=== PATIENT | female | born 1965 | race Caucasian/White ===

== ENCOUNTER 2019-04-24 15:42 | Emergency (ER) | payer BC, OTHER ==
--- OUTSIDE RECORDS SUMMARY | 2019-04-24 16:11 | XMS REPORT | Continuity of Care Document ---
:1965 External Reference #:[id number] Author Name Jim Valdez MD Address [address] [place] [id number] Care Team Providers Name Role Phone Kelly Burnham MD - Care Team Information Freight Engineer [phone] Endocrinology, Diabetes & Metabolism Problems Active Problems Provider Date Type II diabetes mellitus uncontrolled Jeanie Garcia MD Onset: 02/25/2011 Neurological disorder with type 2 diabetes Jeanie Garcia MD Onset: 2013 mellitus Benign essential hypertension Jeanie Garcia MD Onset: 02/25/2011 Edema Jeanie Garcia MD Onset: 09/11/2013 Vitamin D deficiency Jeanie Garcia MD Onset: 03/07/2013 Obesity Jeanie Garcia MD Onset: 04/07/2011 Peptic reflux disease Jeanie Garcia MD Onset: 02/25/2011 Pure hypercholesterolemia Jeanie Garcia MD Onset: 02/25/2011 Calcific tendinitis of shoulder Fabi Conroy PA Onset: 11/12/2015 Strain of rotator cuff capsule Jeanie Garcia MD Onset: 10/12/2016 Gallstone Mario Stuart MD,FACS Onset: 03/08/2018 Heartburn Mario Stuart MD,FACS Onset: 03/08/2018 Screening for malignant neoplasm of colon Mario Stuart MD,FACS Onset: Social History Type Date Description Comments Sex Unknown Tobacco Use Start: Unknown End: Unknown Former Cigarette Smoker Cigarette Use Family Does Not Smoke ETOH Use Rarely consumes alcohol 1 dr/mo Tobacco Use Start: Unknown End: Unknown Patient is a former smoker Recreational Drug Use Denies Drug Use Tobacco Use Start: Unknown 1987 Smoking Status Reviewed: 03/20/19 Quit 1987 Allergies, Adverse Reactions, Alerts Active Allergies Reaction Severity Comments Date NKDA 06/10/2015 Seasonal 02/13/2016 Medications Active Medications SIG Qnty Indications Ordering Date Provider Lansoprazole Take 1 Capsule By 90caps E11.42 Jeanie Garcia, 03/01/2019 30mg Mouth Every Day. MD Gopi DE JESUS Maximum Daily Dose Is 1. Maximum Daily Dose Is 1. Maximum Daily Dose Is 1 Benzonatate take 1 capsule by 30caps Aleksandra Donaldson, 09/26/2018 100mg mouth every 8 [employer] Capsules hours for coughing as needed Lisinopril-Hydrochloro 2 tabs by mouth 180tabs I10 Yasmine Ramirez 05/11/2018 thiazide every day Rupa, IVAN, 20-12.5mg [employer] Tablets Ventolin HFA 1-2 puffs every 4 8gm J20.9 Darline Sibley, 08/19/2017 108(90Base) hours as needed PNP-BC, [employer], mcg/Act Aerosol Ibclc Aerochamber Plus as directed 1units J20.9 Darline Sibley, 08/19/2017 Misc PNP-BC, [employer], Ibclc Cyclobenzaprine HCL 1 by mouth three 90tabs Jim Valdez MD 10/12/2016 10mg times a day as Tablets needed muscle spasms Lasix 1/2 - 1 by mouth 90tabs R60.9 Jeanie Garcia, 02/13/2016 20mg Tablets every day as MD needed Farxiga TK 1 T PO qd Unknown 10mg Tablets Tylenol 2 tabs as needed Unknown 325mg Tablets for pain or discomfort every 4 hours as needed Benadryl 1 tabl by mouth Unknown 25mg Capsules every night at bedtime Multi Vitamin 1 by mouth every Unknown Tablets day Vitamin D 1 by mouth every Unknown day Simvastatin 1 by mouth every Jeanie Garcia, 40mg Tablets day Novolog Flexpen Avg 10 Units ac Kelly Burnham tid A.MD 100Unit/ML Solution Pen-Inject Lantus Solostar 55 Units Q PM Kelly Burnham AMD Blas 100Unit/ML Solution Pen-Inject Victoza 1 .8 ML qd Kelly Burnham 18mg/3ML Solution MD Jenna Pen-Inject History Medications Shingrix intramuscular 1units Z23 Jim Valdez, 09/19/2018 - 50mcg/0.5ML injection x1 03/20/2019 Suspension Rec Medications Administered in Office Medication SIG Qnty Indications Ordering Provider Date Methylprednisolone acetate Fabi Conroy PA 11/12/2015 (Depomedrol) 80mg injection Injection Immunizations CPT Code Status Date Vaccine Lot # [id number] Given 09/19/2018 Pneumovax Injection [id number] Given 04/07/2011 Influenza Vaccine (Fluzone) Age 3 And Older 76545 Given 04/07/2011 flu vaccination 84146 Given 05/25/2006 Influenza Virus Vaccine Intranasal 98838 Given 11/06/2005 Tetnus Injection 41375 Given 05/07/1997 Tetnus Injection Vital Signs Date Vital Result Comment 03/20/2019 9:15am BP Systolic 136 mmHg BP Diastolic 77 mmHg Body Temperature 98.6 F Heart Rate 93 /min Respiratory Rate 18 /min Height 63 inches 5'3" Weight 265.25 lb BMI (Body Mass Index) 47.0 kg/m2 BSA (Body Surface Area) 2.18 m2 [place] body weight in kilograms 52 kg O2 % BldC Oximetry 96 % Ra 11/15/2018 2:10pm BP Systolic 127 mmHg BP Diastolic 77 mmHg Heart Rate 96 /min Height 63 inches 5'3" Weight 264.00 lb BMI (Body Mass Index) 46.8 kg/m2 BSA (Body Surface Area) 2.18 m2 [place] body weight in kilograms 52 kg O2 % BldC Oximetry 98 % Results Test Date Facility Test Result H/L Range Note CBC 09/19/[address] [facility] [address] White Blood 9.7 K/uL Normal 3.1-10.7 1 W/Automated [address] [place] [address] [phone] Red Blood Count 4.80 M/uL Normal 3.90-5.40 Hemoglobin 13.5 gm/dL Normal 11.6-15.8 Hematocrit 41.8 % Normal 36.0-46.1 Mean Cell Volume 87.1 fl Normal 80.9-99.0 Mean Corpuscular HGB 28.1 pg Normal 25.9-32.7 Mean Corpuscular HGB Conc 32.3 g/dL Normal 30.8-34.3 Platelet Count 312 K/uL Normal 155-360 Red Cell Distri Width SD 45.9 fl Normal 36-47 Red Cell Distri Width %CV 14.9 % High 11.7-14.4 Mean Platelet Volume 10.6 fL Normal 8.9-12.4 Neut% 65.0 % Normal 40.4-72.8 Lymph % 20.9 % Normal 20.0-42.0 [place] % 10.1 % Normal 4.3-13.2 Eo% 3.7 % Normal 0.0-6.6 Bas% 0.3 % Normal 0.0-1.1 Neut# 6.33 K/uL Normal 1.8-7.0 Lymph # 2.03 K/uL Normal 1.0-4.0 [place] # 0.98 K/uL High 0.3-0.9 Eos # 0.36 K/uL Normal 0.0-0.5 Baso # 0.03 K/uL Normal 0.0-0.1 Comprehensive Metabolic 09/19/[address] [facility] [address] Glucose 116 mg/dL High 74-[address] [place] [address] [phone] BUN 21 mg/dL High 7-18 Creatinine 0.8 mg/dL Normal 0.6-1.3 Glom Filtration Rate, Estimate >60 mL/min >60 If >60 mL/min >60 2 BUN/Creat 26.2 ratio Sodium 139 mmol/L Normal 136-145 Potassium 3.8 mmol/L Normal 3.5-5.1 Chloride 106 mmol/L Normal 98-107 Carbon Dioxide 26 mmol/L Normal 21-32 Anion Gap 7 mEq/L Low 8-16 Calcium 8.3 mg/dL Low 8.5-10.1 Total Protein 7.0 g/dL Normal 6.4-8.2 Albumin 3.4 g/dL Normal 3.4-5.0 Globulin 3.6 g/dL Normal 1.9-4.3 Alb/Glob 0.9 ratio Bilirubin,Total 0.2 mg/dL Normal 0.2-1.0 Sgot/Ast 14 U/L Low 15-37 3 SGPT/Alt 24 U/L Normal 12-78 Alkaline Phosphatase 93 U/L Normal 45-117 LDL Cholesterol Profile 09/19/[address] Cholesterol 173 mg/dL <200 4 [address] [place] [address] [phone] Triglycerides 204 mg/dL High <150 5 HDL Cholesterol 42 mg/dL >40 6 LDL-Cholesterol 90 mg/dL < 100 7 Glycohemoglobin 09/19/[address] Glycohemoglobin 7.6 % High 4.2-6.3 [address] [place] [address] (A1c) [place], [place] [id number] [phone] eAG 171 mg/dL T7/TSH 09/19/[address] T3 Uptake 35 % Normal 31-[address] [place] [address] [phone] Thyroxine (T4) 8.7 g/dL Normal 4.7-13.3 T7 3.05 g/dL Low 5.0-12.0 Thyroid Stim Hormone 0.76 uIU/mL Normal 0.30-4.20 Laboratory test 09/19/[address] Magnesium 1.9 mg/dL Normal 1.8-2.[address] [place] [address] [phone] 1 Z13.6 I10 2 Note: Persistent reduction for 3 months or more in an eGFR <60 mL/min/1.73 m2 defines CKD. Patients with eGFR values >/=60 mL/min/1.73 m2 may also have CKD if evidence of persistent proteinuria is present. The original MDRD equation for estimated GFR is not valid for patients less than 18 years of age. Additional information may be found at www.kdoqi.org. 3 Values below the stated reference ranges of AST and ALT can be seen in normal populations. Clinical correlation is suggested. 4 Reference Guidelines*: Desirable: ........... < 200 mg/dL Borderline High: ..... 200-239 mg/dL High: ................ >= 240 mg/dL * The National Cholesterol Education Program (NCEP) 5 Reference Guidelines*: Normal: ............. < 150 mg/dL Borderline High: .... 150-199 mg/dL High: ............... 200-499 mg/dL Very High: .......... > 500 mg/dL * Source: National Cholesterol Education Program (NCEP) 6 Reference Guidelines*: Low HDL: ..... < 40 mg/dL Normal: ..... 40-60 mg/dL Desirable: ... > 60 mg/dL *The National Cholesterol Education Program(NCEP) 7 Reference Guidelines*: Optimal:........... <100 mg/dL Near Optimal....... 100-129 mg/dL Borderline High.... 130-159 mg/dL High............... 160-189 mg/dL Very High.......... >=190 mg/dL * Source: National Cholesterol Education Program (NCEP) 8 Elevated levels of HbA1c suggest the need for more aggressive treatment of glycemia. The [place] [employer] recommends that a primary goal of therapy should be a HbA1c of <7% and that physicians should re-evaluate the treatment regimen in patients with HbA1c values consistently >8%. Procedures Date Code Description Status 12/19/2018 84358 Colonoscopy With Biopsy Completed Medical Devices Description No Information Available Encounters Type Date Location Provider Dx Diagnosis Office Visit 11/15/2018 Surgical Office Mario Stuart, Z12.11 Encounter for 2:00p ARTUR BERKOWITZ screening for malignant neoplasm of colon Office Visit 09/26/2018 Family Medicine Aleksandra Donaldson, J06.9 Acute upper 8:[address]a [address] [employer] respiratory infection, unspecified Office Visit 09/19/2018 Family Medicine Jim Valdez MD Z00.01 Encounter for 8:30a [address] general adult medical exam w abnormal findings I10 Essential (primary) hypertension E78.5 Hyperlipidemia, unspecified E11.42 Type 2 diabetes mellitus with diabetic polyneuropathy Z13.6 Encounter for screening for cardiovascular disorders Z12.11 Encounter for screening for malignant neoplasm of colon Z12.31 Encntr screen mammogram for malignant neoplasm of breast Z23 Encounter for immunization Assessments Date Code Description Provider 03/20/2019 Z12.31 Encounter for screening mammogram for Jim Valdez MD malignant neoplasm of breast 03/20/2019 Z79.899 Other prison (current) drug therapy Jim Valdez MD 03/20/2019 E11.42 Type 2 diabetes mellitus with diabetic Jim Valdez MD polyneuropathy 03/20/2019 E78.5 Hyperlipidemia, unspecified Jim Valdez MD 03/20/2019 E66.9 Obesity, unspecified Jim Valdez MD 12/19/2018 Z12.11 Encounter for screening for malignant Mario Stuart MD, FACS neoplasm of colon 12/19/2018 K63.5 Polyp of colon Mario Stuart MD,FACS 12/19/2018 K62.0 Anal polyp Mario Stuart MD,FACS 12/19/2018 K57.30 Diverticulosis of large intestine without Mario Stuart MD,FACS perforation or abs 12/19/2018 Z79.899 Other prison (current) drug therapy Mario Stuart MD ,FACS 11/15/2018 Z12.11 Encounter for screening for malignant Mario Stuart MD, FACS neoplasm of colon 09/26/2018 J06.9 Acute upper respiratory infection, Aleksandra Donaldson, [employer] unspecified 09/19/2018 Z00.01 Encounter for general adult medical Jim Valdez MD examination with abnorma 09/19/2018 I10 Essential (primary) hypertension Jim Valdez MD 09/19/2018 E78.5 Hyperlipidemia, unspecified Jim Valdez MD 09/19/2018 E11.42 Type 2 diabetes mellitus with diabetic Jim Valdez MD polyneuropathy 09/19/2018 Z13.6 Encounter for screening for cardiovascular Jim Valdez MD disorders 09/19/2018 Z12.11 Encounter for screening for malignant Jim Valdez MD neoplasm of colon 09/19/2018 Z12.31 Encounter for screening mammogram for Jim Valdez MD malignant neoplasm of 09/19/2018 Z23 Encounter for immunization Jim Valdez MD Plan of Treatment 03/20/2019 - Jim Valdez MDZ12.31 Encounter for screening mammogram for malignant neoplasm of breastNew Xrays:Mammography, Screening Bilateral Mammogram , Ordered: 03/20/19Z79.899 Other prison (current) drug therapyNew Labs:CBC W/ Automated Diff, Ordered: 03/20/19Comprehensive Metabolic Panel, Ordered: Glycohemoglobin A1c, Ordered: 03/20/19LDL Cholesterol Profile, Ordered: E11.42 Type 2 diabetes mellitus with diabetic [id number] Hyperlipidemia, edrlchahfvjZ28.9 Obesity, unspecified Functional Status Functional Condition Comment Date Status Hearing Aid, left ear Active Independent with all ADL's Active Mental Status Description No Information Available Referrals Refer to Dr Reason for Referral Status Appt Date Mario Stuart MD Closed 11/15/2018 [address] [place] [address] [phone]
[2019-04-24 16:49] VITALS: BP 186/83
--- NOTE | 2019-04-24 17:03 | UC ---
Eye Complaint HPI - HPI Summary HPI Summary: 54 y/o female presents to the urgent care c/o sore throat s/p sleep apnea study w/ CPAP for the past [address] Garcia did the sleep study and after using that CPAP all night she developed moderate sore throat. Last night, symptoms worsen w/ Left ear pain. This morning she woke up and her left eye was red w/ moderate yellowish drainage. She has Hx of DM type II. 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 Pain is 5/10 associated also w/ nasal congestion and yellowish PND. She denies fever, SOB, cough, dizziness, chest pain, abdominal pain, N/V/d. She has taken Tylenol PO to alleviate symptoms. - History of Current Complaint Chief Complaint: UCRespiratory Stated Complaint: RT EYE COMPLAINT,SORE THROAT Time Seen by Provider: 04/24/19 17:02 Hx Obtained From: Patient Hx Last Menstrual Period: yrs ?: No Onset/Duration: Gradual Onset, Lasting Days - 3 days, Still Present, Worse Since - this morning with left eye redness and yellowish crusting Timing: Constant Severity Initially: Mild Severity Currently: Mild Pain Intensity: 5 Pain Scale Used: 0-10 Numeric Location of Injury: Conjunctiva - left eye redness w/ yelowish crusting Character: Foreign Body Sensation Aggravating Factor(s): Light, Blinking, Other - sore throat, nasal congestion and left ear pain Alleviating Factor(s): Nothing Associated Signs And Symptoms: Positive: Drainage (Purulent) - left eye - Risk Factors Penetrating Injury Risk Factor: Negative Globe Rupture Risk Factors: Negative Acute Glaucoma Risk Factors: Negative Optic Artery Occlusion Risk Factors: Negative - Allergies/Home Medications Allergies/Adverse Reactions: Allergies Allergy/AdvReac Type Severity Reaction Status Date / Time environment Allergy Sneezing Uncoded 04/24/19 16:49 Home Medications: Home Medications Acetaminophen [Pain Reliever] 650 mg PO QPM 04/24/19 [History Confirmed 04/24/19 ] Dapagliflozin 10 mg Tab (Nf) [Farxiga] 10 mg PO QAM 04/24/19 [History Confirmed 04/24/19] Ibuprofen TAB* [Motrin TAB* 400 MG] 400 mg PO QPM 04/24/19 [History Confirmed ] Insulin Aspart [Novolog] 100 unit SC QAM 04/24/19 [History Confirmed 04/24/19] Menthol [Biofreeze] QPM 04/24/19 [History] PMH/Surg Hx/FS Hx/Imm Hx Previously Healthy: Yes Endocrine History: Diabetes Cardiovascular History: Hypertension - Surgical History Surgical History: Yes Surgery Procedure, Year, and Place: parathyroid 2013 - Family History Known Family History: Positive: Hypertension, Diabetes - Social History Occupation: Employed Full-time Lives: With Family Alcohol Use: Rare Substance Use Type: None Smoking Status (MU): Former Smoker When Did the Patient Quit Smoking/Using Tobacco: 1985 Review of Systems All Other Systems Reviewed And Are Negative: Yes Constitutional: Positive: Negative Skin: Positive: Negative Eyes: Positive: Drainage - left eye yellowish, Eye Redness - left eye redness ENT: Positive: Sore Throat, Ear Ache - left ear pain, Nasal Discharge - yellowish, Sinus Congestion, Sinus Pain/Tenderness, Other - PND Respiratory: Positive: Negative Cardiovascular: Positive: Negative Gastrointestinal: Positive: Negative Genitourinary: Positive: Negative Motor: Positive: Negative Neurovascular: Positive: Negative Musculoskeletal: Positive: Negative Neurological: Positive: Negative Psychological: Positive: Negative Is Patient Immunocompromised?: No Physical Exam - Summary Physical Exam Summary: Vital Signs Reviewed: Yes General: Well appearing, well nourished obese female in no apparent pain distress Eyes: Positive: LF Conjunctiva Inflamed, Rt WNL - Visual acuity: WNL,Visual vega: full to confrontation. PERRLA, EOMI intact w/out limitation or complaint of pain. eyelashes w/ mild tearing and yellowish crusting drainage observed. No ciliary flush. No chemosis, No photophobia. Normal fundoscopic exam; no proptosis, exophthalmos, nystagmus. ENT: Positive: Normal ENT inspection, Hearing grossly normal, Pharynx mild erythema, no exudate, Nasal congestion, Nasal drainage - yellowish, B/L external ear canal clear , RT TM WNL, LF TM injected w/ erythema, no perforation. Mild Tonsillar swelling, Tonsillar exudate, clear PND, maxillary and frontal sinuses tender to palpation. Neck: Positive: Supple, Nontender, No Lymphadenopathy Respiratory: Positive: Chest nontender, Lungs clear, Normal breath sounds, No respiratory distress Cardiovascular: Positive: RRR, No Murmur, Pulses Normal, Brisk Capillary Refill Abdomen Description: Positive: Nontender, No Organomegaly, Soft. Negative: CVA Tenderness (R), CVA Tenderness (L) Bowel Sounds: Positive: Present Musculoskeletal: Positive: Strength Intact, ROM Intact, No Edema Neurological Exam: Normal Psychological Exam: Normal Skin Exam: Normal Triage Information Reviewed: Yes Vital Signs: Initial Vital Signs Temp 98.4 F 04/24/19 16:43 Pulse 87 04/24/19 16:43 Resp 16 04/24/19 16:43 BP 186/83 04/24/19 16:43 Pulse Ox 97 04/24/19 16:43 Eye Complaint Course/Dx - Course Course Of Treatment: 54 y/o female presents to the urgent care c/o sore throat s/p sleep apnea study w/ CPAP for the past [address] Garcia did the sleep study and after using that CPAP all night she developed moderate sore throat. Last night, symptoms worsen w/ Left ear pain. This morning she woke up and her left eye was red w/ moderate yellowish drainage. She has Hx of DM type II. 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 Pain is 5/10 associated also w/ nasal congestion and yellowish PND. She denies fever, SOB, cough, dizziness, chest pain, abdominal pain, N/V/d. She has taken Tylenol PO to alleviate symptoms. Hx obtained. PE abnormal findings: B/L PERRLA, EOMI, fundi grossly normal, no tender to palpation. LF conjunctiva moderately injected, mild yellowish discharge, RT conjunctiva clear. Left TM injected w/ erythema, no perforation. Pt Most likely Bacterial conjunctivitis, sinusitis and left otitis Media. Rapid strep: negative. Pt Rx Ciprofloxacin ophthalmic drops,and Amoxicillin PO as directed below. Pt advised to encourage hand washing to avoid spreading. Als recommended if symptoms do not improve or worsen to f/u with Mortgage Field Inspector Dr Morris in 3 days for further management. BP rechecked manually by nurse 157/76 which still elevated toda. Pt advised to decrease salt in diet, monitor BP and f/u with PCP for further management. Pt understood and agreed w/plan of care.. - Differential Dx/Diagnosis Differential Diagnosis/HQI/PQRI: Conjunctivitis, Orbital Cellulitis, Other - pharyngitis, ear infection, sinusitis, bronchitis Provider Diagnosis: Bacterial conjunctivitis of left eye, Left otitis media, Uncontrolled hypertension Discharge ED - Sign-Out/Discharge Documenting (check all that apply): Patient Departure - D/C home All imaging exams completed and their final reports reviewed: No Studies - Discharge Plan Condition: Stable Disposition: HOME Prescriptions: Amoxicillin PO (*) [Amoxicillin 500 MG CAP*] 500 mg PO Q12H #14 cap Ciprofloxacin 0.3% OPTH.MICHEL* [Cipro 0.3% Opth*] 1 drop LEFT EYE Q2H #1 btl Patient Education Materials: Ear Infection (ED), Conjunctivitis (ED) Forms: *Work Release Referrals: Jeanie Garcia MD [Primary Care Provider] - 3 Days Additional Instructions: 1-Please apply ophthalmic drops as instructed and finish the full course of treatment to avoid recurrent infection. 2- Please take the full course of the antibiotic to avoid resistance.Take yogurts w/ probiotics or Culturelle to protect your GI system 3-If you do not improve or if symptoms worsen please f/u with project buyer dR Morris or PCP for further evaluation and treatment 4-Your BP is elevated today. Please take your BP medications and decrease salt in your diet, monitor BP and if it continues to be elevated please f/u with your PCP for further management. If you develop chest pain, dizziness, visual disturbances, SOB, or severe LOVETT please go immediately to the ER for further management - Billing Disposition and Condition Condition: STABLE Disposition: Home
== END 2019-04-24 17:36 | disposition home or self-care (01) ==
LOC: UCCORT 15:42
DX: H10.89 Other conjunctivitis (principal); B96.89 Other specified bacterial agents as the cause of diseases classified elsewhere; H66.92 Otitis media, unspecified, left ear; E11.9 Type 2 diabetes mellitus without complications; Z79.4 Long term (current) use of insulin; I10 Essential (primary) hypertension; Z91.09 Other allergy status, other than to drugs and biological substances
CPT/HCPCS: 87651; 99212; G0463

== ENCOUNTER 2019-08-23 09:08 | Inpatient (IN) | payer BC ==
[~2019-08-23 09:08] MED LIST: Buffered Lidocaine 1% SYRIN* 1 ML/SYRINGE INTRADERM ONE; Lactated Ringers 1000 ML Bag* 1,000 ML IV SCH
[2019-08-23] MEDS ORDERED: ceFAZolin 2 GM in NS PREMIX(*) 2 GM/100 ML BAG IVPB ONE (10:14)
[2019-08-23] MEDS ORDERED: Heparin VIAL(*) 5000 UNITS/ML VIAL (FIVE THOUSAND) ONE (10:14)
[2019-08-23] MEDS ORDERED: Buffered Lidocaine 1% SYRIN* 1 ML/SYRINGE INTRADERM ONE (10:14)
[2019-08-23] MEDS ORDERED: ceFAZolin 1 GM ADVAN(*) 1 GM ADDV.VIAL IVPB ONE (10:14)
[2019-08-23] MEDS ORDERED: Succinylcholine* 20 MG/ML 10 ML VIAL ONE ×2 (10:41→12:33)
[2019-08-23] MEDS ORDERED: fentaNYL* 50 MCG/ML 2 ML VIAL (100 MCG VIAL) ONE ×3 (10:41→16:27)
[2019-08-23] MEDS ORDERED: Ketorolac INJ* 30 MG/ML 1 ML VIAL ONE ×2 (10:41→15:21)
[2019-08-23] MEDS ORDERED: Dexamethasone IV* 4 MG/ML 1 ML (4 MG) ONE (10:41)
[2019-08-23] MEDS ORDERED: Propofol* 10 MG/ML 20 ML BTL ONE (10:41)
[2019-08-23] MEDS ORDERED: Glycopyrrolate IV* 0.2 MG/ML 1 ML VIAL ONE (10:41)
[2019-08-23] MEDS ORDERED: Rocuronium* 10 MG/ML VIAL ONE ×2 (10:41→12:32)
[2019-08-23] MEDS ORDERED: Ondansetron INJ* 2 MG/ML VIAL ONE (10:41)
[2019-08-23] MEDS ORDERED: Midazolam* 1 MG/ML 2 ML VIAL (2 MG) ONE (10:42)
[2019-08-23] MEDS ORDERED: Acetaminophen IV 1GM/100ML * 100 ML ONE ×3 (10:42→15:06)
[2019-08-23] MEDS ORDERED: Bupivacaine 0.5% W/EPI SDV* 10 ML VIAL INJ ONE (12:29)
[2019-08-23] MEDS ORDERED: Methylene Blue 0.5 %* 50 MG/10 ML AMP IV ONE (12:31)
[2019-08-23] MEDS ORDERED: Naloxone* 0.4 MG/ML 1 ML VIAL IV PRN (14:33)
[2019-08-23] MEDS ORDERED: HYDROmorphone INJ1* 1 MG/ML SYRINGE IV SLOW PU PRN (14:53)
[2019-08-23] MEDS ORDERED: Acetaminophen ADULT LIQ* 650 MG/20.3 ML UDC PO PRN (14:53)
--- NOTE | 2019-08-23 14:53 | BRIEFOPN ---
Brief Operative/Procedure Note - Operation Details Pre-Op Diagnosis: Morbid obesity Post-Op Diagnosis: Morbid obesity Procedures: Laparoscopic susanne en y gastric bypass Surgeon(s)/Proceduralists: Dr. Dong. Assist: VALENTINA Kan Anesthesia: GETA. IVF 1500 mL Estimated Blood Loss: <25cc Findings: As above Specimen(s)/Culture(s) Description: None Complications: None
[2019-08-23] MEDS ORDERED: Acetaminophen IV 1GM/100ML * 1,000 MG/100 ML VIAL IVPB ONE (15:06)
[2019-08-23] MEDS: fentaNYL* 50 MCG/ML 2 ML VIAL (100 MCG VIAL) IV PRN ×5 (15:10→16:27)
[2019-08-23] MEDS ORDERED: HYDROmorphone INJ1* 1 MG/ML SYRINGE ONE (15:12)
[2019-08-23] MEDS ORDERED: Dextrose 50% Syringe 50 ML* 25 GM/50 ML SYRINGE IV PUSH PRN (15:22)
[2019-08-23] MEDS: Ketorolac INJ* 15 MG/ML 1 ML VIAL IV SCH ×2 (15:23→20:48)
[2019-08-23] MEDS: Lactated Ringers 1000 ML Bag* 1,000 ML IV SCH ×2 (17:01→23:39)
[2019-08-23] MEDS ORDERED: HYDROmorphone INJ* 0.5 MG/0.5 ML SYRINGE IV SLOW PU ONE (17:17)
[2019-08-23] MEDS ORDERED: HYDROmorphone INJ* 0.5 MG/0.5 ML SYRINGE ONE (17:23)
[2019-08-23] MEDS: Insulin LISPRO* 1 UNITS UNIT SUBCUT SCH (18:07)
[2019-08-23] MEDS: Famotidine IV* 10 MG/ML 2 ML (20 mg) IV SLOW PU SCH (20:49)
[2019-08-23] MEDS ORDERED: Heparin VIAL(*) 5000 UNITS/ML VIAL (FIVE THOUSAND) SUBCUT SCH (22:00)
[2019-08-23] MEDS: HYDROmorphone INJ* 0.5 MG/0.5 ML SYRINGE IV SLOW PU PRN (22:42)
[2019-08-23] MEDS: Ondansetron INJ* 2 MG/ML VIAL IV PRN (22:42)
[2019-08-24] MEDS: Insulin LISPRO* 1 UNITS UNIT SUBCUT SCH ×5 (00:39→21:56)
--- NOTE | 2019-08-24 01:03 | OP ---
CC: [facility]; Jeanie Garcia MD * DATE OF OPERATION: 08/23/19 - ROOM #353 DATE OF : 61 SURGEON: Alden Dong MD DIE CAST ENGINEER: VALENTINA Gtz ANESTHESIOLOGIST: Dr. Vipul Cunnignham. ANESTHESIA: General endotracheal. PRE-OP DIAGNOSIS: Clinically severe obesity. POST-OP DIAGNOSIS: Clinically severe obesity. OPERATIVE PROCEDURE: Laparoscopic Isacc-en-Y gastric bypass. ESTIMATED BLOOD LOSS: Less than 20 mL. IV FLUIDS: Crystalloid. SPECIMENS: None. DRAINS: None. COMPLICATIONS: None. COUNTS: Instrument, needle, and sponge count correct. DESCRIPTION OF PROCEDURE: The patient was brought to the operating room, placed on the table supine. Sequential compression devices were placed on both lower extremities. General anesthesia was administered. The abdomen was prepped and draped in the usual sterile fashion. The patient received appropriate intravenous antibiotics. Time-out was performed. Local anesthetic was infiltrated into the skin and soft tissue prior to making each incision. Entry into the abdomen was through a left upper quadrant incision accommodating a 12-mm optical trocar. After accessing the peritoneal cavity, carbon dioxide was insufflated to a pressure of 15 mmHg. Under direct visualization, a 12-mm bladeless trocars were placed in the supraumbilical midline and in the right upper quadrant. 5-mm bladeless trocars were placed in the right upper quadrant medially and left upper quadrant laterally and a Allan liver retractor was placed percutaneously in the subxiphoid position, used to elevate the left lobe of the liver. Gastric anatomy appeared normal. Fundus of the stomach was dissected free from the left leigh ann of the diaphragm. Perigastric dissection was then under-taken on the lesser curvature entering the lesser sac. This was at the proximally second crossing vein. The gastric pouch was created to a volume of approximately 15 to 30 mL. This was done with the series of firings of the Endo JB stapler with bone cartridges. Caruthers lines were noted to be intact and hemostatic. The omentum was then retracted cephalad and divided down the midline with the LigaSure. Transverse colon was retracted cephalad and ligament of Treitz was identified. Jejunum was measured out 40 to 50 cm and a loop was sutured to the lateral staple line of the gastric pouch with 2-0 silks in an interrupted fashion. A gastrojejunal anastomosis was then created with the Endo JB stapler with the bone cartridge. The common enterotomy was closed with the 3-0 PDS over a 34 Latvian gastric lavage tube. The jejunal loop was divided into the left of the gastric pouch to complete the anastomosis and the anastomosis was tested with methylene blue dye solution instilled through the orogastric tube. No leak was identified. The tube was withdrawn and then the Isacc limb was measured out for 75 cm, at which point, a functional end-to-side jejunojejunostomy was created with a 60- mm bone cartridge. The common enterotomy was run closed with 3-0 PDS running to and fro, tying it to itself. 3-0 silks were using interrupted [id number] fashion to close the mesenteric defect. Hemostasis was assured and orientation of the Isacc limb was assured. The Allan liver retractor and ports removed under direct visualization, carbon dioxide was released. Wounds were closed with 4-0 Monocryl in a subcuticular fashion to approximate the skin edges. DermaFlex was applied. The patient tolerated the procedure well, was extubated, and transferred to Recovery in stable condition. [id number]/[facility] #: [id number] [facility]
[2019-08-24] MEDS: Ketorolac INJ* 15 MG/ML 1 ML VIAL IV SCH ×4 (03:04→21:57)
[2019-08-24] MEDS: HYDROmorphone INJ* 0.5 MG/0.5 ML SYRINGE IV SLOW PU PRN ×2 (06:11→09:32)
[2019-08-24] MEDS: Lactated Ringers 1000 ML Bag* 1,000 ML IV SCH ×2 (06:15→12:10)
[2019-08-24] MEDS: Heparin VIAL(*) 5000 UNITS/ML VIAL (FIVE THOUSAND) SUBCUT SCH ×3 (08:05→21:57)
[2019-08-24] MEDS: Famotidine IV* 10 MG/ML 2 ML (20 mg) IV SLOW PU SCH ×2 (08:45→21:57)
--- NOTE | 2019-08-24 10:19 | PN ---
Progress Note - Progress Note Date of Service: 08/24/19 Note: S: Reports she felt some pain after moving around, but has since resolved for the most part. Some nausea earlier, none recently. Started on bariatric clear liquid diet, which has been tolerated thusfar; about 1 ounce taken total. No BM or flatus, though feels she may have to soon. O: Vital Signs - 8 hr 08/24/19 08/24/19 08/24/19 03:13 06:11 07:29 Temperature 99 F 98.1 F Pulse Rate 90 90 Respiratory 16 20 14 Rate Blood Pressure 147/78 146/68 (mmHg) O2 Sat by Pulse 96 98 Oximetry 08/24/19 08/24/19 08/24/19 07:50 08:00 09:32 Temperature Pulse Rate Respiratory 16 16 18 Rate Blood Pressure (mmHg) O2 Sat by Pulse 98 Oximetry 08/24/19 10:17 Temperature Pulse Rate Respiratory 18 Rate Blood Pressure (mmHg) O2 Sat by Pulse Oximetry Intake and Output Last 24 Hours 08/22/19 08/23/19 08/24/19 08/25/19 06:59 06:59 06:59 06:59 Intake Total 3272 Output Total 550 0 Balance 2722 0 Weight 243 lb Intake: IV Fluids 3272 LR 3172 TYLENOL 100 Oral 0 Output: Urine 550 0 Other: Estimated Void Medium # Voids 1 PEX General: Alert, in NAD HEENT: Oropharynx clear. PERRLA. Heart: RRR. Lungs: CTAB. ABD: Soft, nondistended. Tender in epigastrium and surrounding her incisions, which are C/D/I. Extremities: Calves soft and nontender. Distal pulses intact bilaterally. No edema. Assessment and plan: 54 yo F s/p laparoscopic susanne en y gastric bypass, POD#1. Started on bariatric clear diet. Encouraged ambulation and deep breathing. Advised on proper intake of liquids. Continue SCDs, IS, and heparin DVT prophylaxis.
[2019-08-24] MEDS ORDERED: Lactated Ringers 1000 ML Bag* 500 ML IV SCH (12:00)
[2019-08-24] MEDS: HYDROcodone/ACET. 7.5/325 LIQ* 15 ML UDC PO PRN (15:05)
[2019-08-24] MEDS: D5W 1/2 NS KCl 20 Meq 1000 ML* 1,000 ML IV SCH ×2 (15:14→23:13)
[2019-08-24] MEDS: Ondansetron INJ* 2 MG/ML VIAL IV PRN (23:06)
[2019-08-25] MEDS: HYDROcodone/ACET. 7.5/325 LIQ* 15 ML UDC PO PRN ×2 (02:21→07:26)
[2019-08-25] MEDS: Heparin VIAL(*) 5000 UNITS/ML VIAL (FIVE THOUSAND) SUBCUT SCH (05:58)
[2019-08-25] MEDS: Ondansetron INJ* 2 MG/ML VIAL IV PRN (07:26)
[2019-08-25] MEDS: D5W 1/2 NS KCl 20 Meq 1000 ML* 1,000 ML IV SCH (07:26)
[2019-08-25 07:42] VITALS: BP 136/71
[2019-08-25] MEDS: Famotidine IV* 10 MG/ML 2 ML (20 mg) IV SLOW PU SCH (08:32)
[2019-08-25] MEDS: Insulin LISPRO* 1 UNITS UNIT SUBCUT SCH (08:32)
--- NOTE | 2019-08-25 09:46 | DS ---
Admit date: 08/23/2019 Discharge date: 08/25/2019 Admit diagnosis: Morbid obesity Discharge diagnosis: Morbid obesity Condition at discharge: Stable Procedure: Laparoscopic susanne en y gastric bypass Surgeon: Dr. Dong Labs: Unremarkable PEX General: Alert, in NAD or discomfort. Integumentary: No rashes, jaundice, petechia. HEENT: Oropharynx clear. PERRLA. Heart: RRR, no MRG. Lungs: CTAB, no WRR. ABD: BS present. Soft, nondistended. Mild tenderness surrounding incisions, which are C/D/I. No guarding or rebound tenderness. Extremities: Calves soft and nontender. Distal pulses intact bilaterally. No edema. Hospital course: Admitted for the above named procedure. Pt tolerated it well and was transferred to [facility] for post operative care. On POD#1, she was started on bariatric clear liquid diet, which was tolerated well. She experienced some intermittent nausea, which was well controlled with medication. On POD#2, she was tolerating her bariatric clear liquid diet at goal amount, ambulating without problem, passing flatus, and her pain/ nausea were well controlled. Additionally, her incisions were healing appropriately. Instructions were given to the patient regarding diet, medications, activity, post op follow up, and care for incisions. All questions were answered. Discharged home in stable condition on 08/25/2019.
== END 2019-08-25 10:35 | disposition home or self-care (01) | DRG 403 ==
LOC: AA 09:08 → SSU 14:53
PROVIDERS: ADMIT Surgery; ATTEND Surgery
PROC: 0D164ZA Bypass Stomach to Jejunum, Percutaneous Endoscopic Approach (ICD-10-PCS; principal; 2019-08-23 11:15)
DX: E66.01 Morbid (severe) obesity due to excess calories (principal); I10 Essential (primary) hypertension; K21.9 Gastro-esophageal reflux disease without esophagitis; M19.90 Unspecified osteoarthritis, unspecified site; E78.2 Mixed hyperlipidemia; E78.00 Pure hypercholesterolemia, unspecified; G47.30 Sleep apnea, unspecified; K44.9 Diaphragmatic hernia without obstruction or gangrene; G47.33 Obstructive sleep apnea (adult) (pediatric); J45.909 Unspecified asthma, uncomplicated; E11.42 Type 2 diabetes mellitus with diabetic polyneuropathy; E55.9 Vitamin D deficiency, unspecified; R11.0 Nausea; Z87.891 Personal history of nicotine dependence; Z68.42 Body mass index [BMI] 45.0-49.9, adult; Z87.11 Personal history of peptic ulcer disease; Z79.4 Long term (current) use of insulin
CPT/HCPCS: 43644; C1776; J0330; J0690; J1100; J1170; J1644; J1885; J2250; J2405; J2704; J3010

== ENCOUNTER 2019-08-28 17:35 | Emergency (ER) | payer BC ==
--- NOTE | 2019-08-28 18:04 | ED ---
Skin Complaint - HPI Summary HPI Summary: Patient complains of bleeding starting today from a surgical incision. Isacc-en- Y performed by Dr. Dong 5 days ago with no subsequent irregularities until today. Denies trauma, fever, cough, sore throat, CP, SOB, N/V/D, new abdominal pain, change in urine, change in BM. Medical history is DM, neuropathy. Liraglutide (NF) [Victoza (NF)] 1.8 ml SUBCUT QAM 10/23/12 [History Confirmed ] diPHENhydraMINE PO* [Benadryl PO 25 MG TAB*] 50 mg PO QPM 10/23/12 [History Confirmed 08/23/19] zzInsulin GLARGINE(*) [zzLantus(*)] 26 units SUBCUT BEDTIME 10/23/12 [History Confirmed 08/23/19] Acetaminophen [Pain Reliever] 2 tab PO BID 04/24/19 [History Confirmed 08/23/19] Dapagliflozin 10 mg Tab (Nf) [Farxiga] 10 mg PO QAM 04/24/19 [History Confirmed 08/23/19] Menthol [Biofreeze] 1 applic TOPICAL BID PRN 04/24/19 [History Confirmed ] Atorvastatin* [Lipitor 40 MG*] 40 mg PO 1700 08/16/19 [History Confirmed ] Cyclobenzaprine TAB* [Flexeril 10 MG TAB*] 1 tab PO BEDTIME 08/16/19 [History Confirmed 08/23/19] Melatonin/Herbal Comb. No.184 [Melatonin + l-Theanine Softgel] 2 tab.chew PO BEDTIME 08/16/19 [History Confirmed 08/23/19] Omeprazole 40 mg PO QAM 08/16/19 [History Confirmed 08/23/19] Ondansetron ODT TAB* [Zofran 4 MG Odt TAB*] 4 mg PO Q8H PRN #4 tab.odt 08/25/19 [Rx] - History of Current Complaint Chief Complaint: EDLacSutureRecheck Time Seen by Provider: 08/28/19 18:01 Stated Complaint: POST SURGERY/INCISION BLEEDING PER PT Hx Obtained From: Patient Hx Last Menstrual Period: yrs Onset/Duration: Started Hours Ago Skin Exposure Onset/Duration: Hours Ago Timing: Intermittent Current Severity: None Pain Intensity: 0 Pain Scale Used: 0-10 Numeric Aggravating Symptom(s): Other: Associated Signs & Symptoms: Negative - Additional Pertinent History Primary Care Physician: - Allergy/Home Medications Allergies/Adverse Reactions: Allergies Allergy/AdvReac Type Severity Reaction Status Date / Time No Known Drug Allergies Allergy See Comment Verified 08/28/19 17:40 environment Allergy Sneezing Uncoded 08/28/19 17:40 Home Medications: Home Medications Liraglutide (NF) [Victoza (NF)] 1.8 ml SUBCUT QAM 10/23/12 [History Confirmed ] diPHENhydraMINE PO* [Benadryl PO 25 MG TAB*] 50 mg PO QPM 10/23/12 [History Confirmed 08/23/19] zzInsulin GLARGINE(*) [zzLantus(*)] 26 units SUBCUT BEDTIME 10/23/12 [History Confirmed 08/23/19] Acetaminophen [Pain Reliever] 2 tab PO BID 04/24/19 [History Confirmed 08/23/19] Dapagliflozin 10 mg Tab (Nf) [Farxiga] 10 mg PO QAM 04/24/19 [History Confirmed 08/23/19] Menthol [Biofreeze] 1 applic TOPICAL BID PRN 04/24/19 [History Confirmed ] Atorvastatin* [Lipitor 40 MG*] 40 mg PO 1700 08/16/19 [History Confirmed ] Cyclobenzaprine TAB* [Flexeril 10 MG TAB*] 1 tab PO BEDTIME 08/16/19 [History Confirmed 08/23/19] Melatonin/Herbal Comb. No.184 [Melatonin + l-Theanine Softgel] 2 tab.chew PO BEDTIME 08/16/19 [History Confirmed 08/23/19] Omeprazole 40 mg PO QAM 08/16/19 [History Confirmed 08/23/19] Ondansetron ODT TAB* [Zofran 4 MG Odt TAB*] 4 mg PO Q8H PRN #4 tab.odt 08/25/19 [Rx] PMH/Surg Hx/FS Hx/Imm Hx Endocrine/Hematology History: Reports: Hx Diabetes - insulin Denies: Hx Bone Marrow Disease, Hx Sickle Cell Disease, Hx Thyroid Disease, Hx Anemia Cardiovascular History: Reports: Hx Hypertension Denies: Hx Angina, Hx Cardiomegaly, Hx Congestive Heart Failure, Hx Coronary Artery Disease, Hx Pacemaker/ICD, Hx Peripheral Vascular Disease, Hx Rheumatic Fever, Hx Valvular Heart Disease, Other Cardiovascular Problems/Disorders Respiratory History: Reports: Hx Asthma, Hx Sleep Apnea Denies: Hx Pulmonary Edema, Hx Pulmonary Embolism, Other Respiratory Problems /Disorders GI History: Reports: Hx Gastroesophageal Reflux Disease Denies: Hx Cirrhosis, Hx Crohn's Disease, Hx Hiatal Hernia, Hx Irritable Bowel, Hx Jaundice, Hx Ulcer, Other GI Disorders History: Denies: Hx Kidney Infection, Hx Kidney Stones, Other Problems/Disorders Musculoskeletal History: Reports: Hx Arthritis - BACK; DEGENERATIVE HIP RIGHT; HANDS Denies: Hx Bursitis, Hx Tendonitis, Other Musculoskeletal History Sensory History: Reports: Hx Contacts or Glasses - GLASSES, Hx Hearing Aid - STAPENDECTOMY IN RIGHT; LEFT HEARING AID Denies: Hx Cataracts, Hx Glaucoma Opthamlomology History: Reports: Hx Contacts or Glasses - GLASSES Denies: Hx Cataracts, Hx Glaucoma Neurological History: Denies: Hx Headaches, Hx Migraine, Hx Nerve Disease, Hx Seizures, Other Neuro Impairments/Disorders Psychiatric History: Denies: Hx Anxiety, Hx Attention Deficit Hyperactivity Disorder, Hx Eating Disorder, Hx Depression, Hx Panic Disorder, Hx Post Traumatic Stress Disorder, Hx Inpatient Treatment, Hx Community Mental Health Tx, Hx Schizophrenia, Hx Bipolar Disorder, Hx Suicide Attempt, Hx of Violent Episodes Against Others, Hx Substance Abuse, Other Psychiatric Issues/Disorders - Cancer History Hx Chemotherapy: No - Surgical History Surgery Procedure, Year, and Place: parathyroid 2013. CHOLEYCYSTECTOMY 2017. STEPENDECTOMY 1999. C-SEC X 2 1999 Hx Anesthesia Reactions: Yes - HAD REACTION TO SPINAL ANESTHESIA IN 1999 HAD TO HAVE BENADRYL INJECTION Infectious Disease History: No Infectious Disease History: Denies: Hx Hepatitis, Hx Human Immunodeficiency Virus (HIV), Hx of Known/ Suspected MRSA, Hx Shingles, Hx Tuberculosis, History Other Infectious Disease, Traveled Outside the [place] in Last 30 Days - Family History Known Family History: Positive: Hypertension, Diabetes - Social History Alcohol Use: Occasionally Alcohol Amount: 1 GLASS OF WINE Substance Use Type: Reports: Marijuana Substance Use Comment - Amount & Last Used: HIGH SCHOOL Smoking Status (MU): Former Smoker Amount Used/How Often: 1/2 PPD STARTED AGE 12 (7 YEARS) Have You Smoked in the Last Year: No Review of Systems Constitutional: Negative Eyes: Negative ENT: Negative Cardiovascular: Negative Respiratory: Negative Gastrointestinal: Other Genitourinary: Negative Musculoskeletal: Negative Skin: Negative Neurological/Mental Status: Negative Psychological: Normal All Other Systems Reviewed And Are Negative: Yes Physical Exam - Summary Physical Exam Summary: Surgical incisions on the abdomen look clean and dry and intact. Aging ecchymosis present. No erythema, purulent discharge, mass noted. Supraumbilical incision bleeds small amounts of dark blood when palpated or when patient moves. Otherwise normal exam. Triage Information Reviewed: Yes Vital Signs On Initial Exam: Initial Vitals Temp Pulse Resp BP Pulse Ox 98.1 F 88 19 187/101 98 08/28/19 17:38 08/28/19 17:38 08/28/19 17:38 08/28/19 17:38 08/28/19 17:38 Vital Signs Reviewed: Yes Appearance: Positive: Well-Appearing Skin: Positive: Warm Head/Face: Positive: Normal Head/Face Inspection Eyes: Positive: Normal Neck: Positive: Supple Respiratory/Lung Sounds: Positive: Clear to Auscultation Cardiovascular: Positive: Normal Abdomen Description: Positive: Other: Musculoskeletal: Positive: Normal Neurological: Positive: Normal Psychiatric: Positive: Normal AVPU Assessment: Alert - [place] Coma Scale Best Eye Response: 4 - Spontaneous Best Motor Response: 6 - Obeys Commands Best Verbal Response: 5 - Oriented Coma Scale Total: 15 Procedures - Sedation Patient Received Moderate/Deep Sedation with Procedure: No Diagnostics - Vital Signs Vital Signs Temp Pulse Resp BP Pulse Ox 08/28/19 17:38 98.1 F 88 19 187/101 98 - Laboratory Lab Statement: Any lab studies that have been ordered have been reviewed, and results considered in the medical decision making process. Course/Dx - Course Course Of Treatment: Patient complains of bleeding starting today from a surgical incision. Isacc-en-Y performed by Dr. Dong 5 days ago with no subsequent irregularities until today. Denies trauma, fever, cough, sore throat , CP, SOB, N/V/D, new abdominal pain, change in urine, change in BM. Medical history is DM, neuropathy. Vital signs within normal limits. Discussed patient with surgery on-call Dr. Cummings who recommended antibiotic ointment, abdominal pad and follow-up in clinic tomorrow. - Diagnoses Provider Diagnoses: Problem involving surgical incision Discharge ED - Sign-Out/Discharge Documenting (check all that apply): Patient Departure - Discharge Plan Condition: Stable Disposition: HOME Referrals: Jeanie Garcia MD [Primary Care Provider] - Alden Dong MD [Medical Doctor] - Additional Instructions: Apply antibiotic ointment to the surgical incision and then cover with pad. Call office of Dr. Dong tomorrow morning for further evaluation. Return to the ED for any new or worsening symptoms. - Billing Disposition and Condition Condition: STABLE Disposition: Home - Attestation Statements Provider Attestation: I was available for consultation for this patient. I did not evaluate the patient or participate in any medical decision making or disposition decisions unless I am specifically named in the chart as having consulted on the patient. If I have consulted on the patient, please see my own ED note on the patient encounter. Eduin Goyal MD
[2019-08-28] MEDS ORDERED: Bacitracin OINTMENT* 0.5% 0.5 oz TUBE TOPICAL ONE (18:31)
[2019-08-28 19:09] VITALS: BP 164/88
== END 2019-08-28 19:08 | disposition home or self-care (01) ==
LOC: ED 17:35
DX: T81.89XA Other complications of procedures, not elsewhere classified, initial encounter (principal); E11.9 Type 2 diabetes mellitus without complications; G62.9 Polyneuropathy, unspecified; Z79.4 Long term (current) use of insulin; I10 Essential (primary) hypertension; Z98.84 Bariatric surgery status; Z87.891 Personal history of nicotine dependence
CPT/HCPCS: 99281; A9270-GY